=== PATIENT | female | born 1995 | race Two or more races ===

== ENCOUNTER 2019-04-17 00:21 | Emergency (ER) | payer MEDICAID ==
[~2019-04-17] VITALS: Ht 154.9 cm; Wt 83.0 kg
[2019-04-17 02:18] VITALS: BP 140/80
== END 2019-04-17 02:54 | disposition home or self-care (01) ==
LOC: EMS 00:25
DX: S00.33XA Contusion of nose, initial encounter (principal); Z88.0 Allergy status to penicillin; Y04.0XXA Assault by unarmed brawl or fight, initial encounter; Y93.89 Activity, other specified; Y92.89 Other specified places as the place of occurrence of the external cause; Y99.8 Other external cause status
CPT/HCPCS: 70160